=== PATIENT | female | born 1950 | race Caucasian/White ===

== ENCOUNTER → 2016-09-25 | Outpatient (CLI) | payer MEDICARE, OTHER ==
--- NOTE | 2016-10-06 18:37 | WOMENS IMAGING REPORT ---
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 LIMITATIONS: None. FINDINGS: Findings present which are benign by mammographic criteria. No suspicious masses, calcifi cations or architectural distortion. Pertinent benign findings: Right breast benign calcifications, left axillary surgical clips with left breast skin thickening from breast radiation therapy. Read with the assistance of CAD. .[facility] - R2 Cenova Version 1.3 .[facility] - R2 Cenova Version 1.3 .[facility] - R2 Cenova Version 2.4 .[facility] [place] R2 Cenova Version 2.4 .[facility] - R2 Marking Clerk Version 9.2 Benign mammographic findings may include one or more of the following: Smooth masses, popcorn/rim/co arse calcifications, asymmetries, post-procedure changes, and lesions with long-standing stability. IMPRESSION: BENIGN MAMMOGRAPHIC FINDINGS. BIRADS 2 BREAST DENSITY: b. There are scattered areas of fibroglandular density. BIRAD: 2 BENIGN FINDING(S) RECOMMENDATION: RECOMMENDATION: ROUTINE SCREENING COMMENT: The patient has been notified of the results by letter per SA requirements. Additional no tification policies are in place for contacting patient with suspicious or incomplete findings. Quality ID #[id number]: The [employer] recommends an annual screening mammogram for women aged 40 years or over. This facility utilizes a reminder system to ensure that all patients receive reminder letters, and/or direct phone calls for appointments. This includes reminders for routine scr eening mammograms, diagnostic mammograms, or other Breast Imaging Interventions when appropriate. Th is patient will be placed in the appropriate reminder system. The [employer] (ACR) has developed recommendations for screening MRI of the breast s in certain patient populations, to be used in conjunction with mammography. Breast MRI surveillanc e may be appropriate for women with more than 20% lifetime risk of developing breast cancer as deter mined by genetic testing, significant family history of the disease, or history of mantle radiation f or Hodgkins Disease. ACR Practice Guidelines 2008. DBT Technology DBT is a type of tomographic mammography. With conventional mammography, overlapping breast tissue ma y make lesions difficult to detect, even with good compression. DBT uses an x-ray tube that rotates a round the breast, taking images at different angles. These images are then combined to create thin sl ices of the breast that the radiologist can view as a 3D reconstruction. The [employer] unit can perform full-field digital mammograms (2D imaging); or DBT (3D imaging); or both, in a combination mode that quickly performs both the mammogram and the tomosynthesis scan while the breast is still compressed. PQRS 6045F: Fluoroscopic imaging is not utilized for breast tomosynthesis. TECHNICAL DOCUMENTATION: FINDING NUMBER: (1) ASSESSMENT: (1) JOB ID: [id number] [employer]- All Rights Reserved
== END ==
LOC: WI 09:14
PROVIDERS: ATTEND Internal Medicine
DX: C50.412 Malignant neoplasm of upper-outer quadrant of left female breast (principal)
CPT/HCPCS: G0279; G0204; 77062; 77066

== ENCOUNTER 2017-04-19 07:11 | Day surgery (SDC) | payer MEDICARE, OTHER ==
[~2017-04-19 07:11] MED LIST: KETOROLAC TROMETHAMINE 0.45% 4 DROP/0.4 ML DROPERETTE OS PRN
[2017-04-19] MEDS: TROPICAMIDE 1% OPH SOLN 3 ML OS PRN ×3 (07:32→08:12)
[2017-04-19] MEDS: CYCLOPENTOLATE 0.2%/PHENYLEPHRINE 1% OPH SOLN 2 ML OS PRN ×3 (07:32→08:12)
[2017-04-19] MEDS: BESIFLOXACIN HCL 0.6% OPH SUSP 5 ML BOTTLE OS PRN ×4 (07:33→08:57)
[2017-04-19] MEDS: TETRACAINE HCL 0.5% OPH SOLN 2 ML OS PRN ×4 (07:34→08:32)
[2017-04-19] MEDS ORDERED: MIDAZOLAM 2 MG/2 ML INJ ONE ×2 (08:04→08:23)
[2017-04-19] MEDS ORDERED: DEXTROSE 50%-WATER 25 GM/50 ML DISP.SYRIN IV ONE (08:24)
[2017-04-19] MEDS: EPINEPHRINE INJ/PF 1 MG/1 ML AMPULE ONE ×2 (08:44)
[2017-04-19] MEDS: CHONDR SU A NA/HYALUR INTRAOC KIT (SURGICARE) ONE ×2 (08:44)
[2017-04-19] MEDS: LIDOCAINE 1% INJ-PF (10 MG/ML) 30 ML SDV ONE ×2 (08:44)
--- NOTE | 2017-04-19 21:23 | [facility] DISCHARGE SUMMARY E ---
[facility] Discharge Summary NAME: CARMEN DC AGE: 66Y ADMITTED: 04/19/2017 DISCHARGED: 04/19/2017 HOSPITAL COURSE: This is a 66-year-old female who underwent cataract extraction of the left eye. DIAGNOSIS: CATARACT, LEFT EYE. The patient underwent surgery because she was having difficulty seeing road signs. DISCHARGE INSTRUCTIONS: She is to be on a regular diet. No bending at the waist, no heavy lifting. She should use Besivance, Ilevro, and Durezol at 3 p.m. and 8 p.m. and sleep with a rigid shield. I will see her for a 1 day postoperative tomorrow. DICTATING PHYSICIAN: FRANKY PEMBERTON M.D. [id number] PHY#: [id number] ID: [id number] JOB#: [id number] ACCT: [id number] cc:FRANKY PEMBERTON M.D. >
--- NOTE | 2017-04-19 21:33 | SURGICARE OPERATIVE REPORT E ---
[facility] Operative Report NAME: CARMEN DC AGE: 66Y DATE OF SURGERY: 04/19/2017 ROOM: PREOPERATIVE DIAGNOSIS: CATARACT, LEFT EYE. POSTOPERATIVE DIAGNOSIS: CATARACT, LEFT EYE. OPERATION: Cataract extraction with intraocular lens implant of the left eye. SURGEON: FRANKY PEMBERTON M.D. ANESTHESIA: Topical. PROCEDURE: After obtaining appropriate consent, the patient's left eye was prepped and draped in sterile fashion as well as the surgeon in a sterile manner and cataract surgery was started. First a paracentesis blade was used to make a small side-port incision. Viscoelastic was used to inflate the anterior chamber. Next a 2.4 mm incision was made with the paracentesis blade. A continuous capsulorrhexis incision was made using a cystotome and Utrata forceps. Following this hydrodissection was carried out to make the lens fully loose and mobile and it was rotated 90 degrees. Following this, a yhgqtg-vwi-rjksere technique was used to phacoemulsify the lens with a CDE of 10.65. The remaining cortex was removed with irrigation/aspiration. Provisc was instilled into the capsular bag to inflate the bag. A SN60WF, 14.0 diopter lens was placed. The remaining viscoelastic material was removed with irrigation/aspiration. Following this, a 10-0 nylon suture was used to close the incision and it was found to be watertight. Vigamox was instilled in the eye and a protective shield was placed over the eye. The patient returned to the postoperative recovery in stable condition. DICTATING PHYSICIAN: FRANKY PEMBERTON M.D. [id number] PHY#: [id number] ID: [id number] JOB#: [id number] ACCT: [id number] cc:FRANKY PEMBERTON M.D. >
== END 2017-04-19 09:50 | disposition home or self-care (01) ==
LOC: SC 07:11
PROVIDERS: ATTEND Internal Medicine
PROC: 08RK3JZ Replacement of Left Lens with Synthetic Substitute, Percutaneous Approach (ICD-10-PCS; principal; 2017-04-19 08:30)
DX: H25.12 Age-related nuclear cataract, left eye (principal); I10 Essential (primary) hypertension; K21.9 Gastro-esophageal reflux disease without esophagitis; E11.9 Type 2 diabetes mellitus without complications; Z79.84 Long term (current) use of oral hypoglycemic drugs; Z88.0 Allergy status to penicillin; Z79.82 Long term (current) use of aspirin; Z85.3 Personal history of malignant neoplasm of breast
CPT/HCPCS: 66984; 82962; V2632; J2250; J3490 ×3; A9270; J0171; 142

== ENCOUNTER 2017-05-17 06:51 | Day surgery (SDC) | payer MEDICARE, OTHER ==
[~2017-05-17 06:51] MED LIST changes: +BESIFLOXACIN HCL 0.6% OPH SUSP 5 ML BOTTLE OD PRN; +CYCLOPENTOLATE 0.2%/PHENYLEPHRINE 1% OPH SOLN 2 ML OD PRN; +KETOROLAC TROMETHAMINE 0.45% 4 DROP/0.4 ML DROPERETTE OD PRN; -KETOROLAC TROMETHAMINE 0.45% 4 DROP/0.4 ML DROPERETTE OS PRN; +TETRACAINE HCL 0.5% OPH SOLN 2 ML OD PRN; +TROPICAMIDE 1% OPH SOLN 3 ML OD PRN
[2017-05-17] MEDS ORDERED: EPINEPHRINE INJ/PF 1 MG/1 ML AMPULE ONE (07:11)
[2017-05-17] MEDS ORDERED: LIDOCAINE 1% INJ-PF (10 MG/ML) 30 ML SDV ONE (07:11)
[2017-05-17] MEDS ORDERED: CHONDR SU A NA/HYALUR INTRAOC KIT (SURGICARE) ONE (07:11)
[2017-05-17] MEDS: TETRACAINE HCL 0.5% OPH SOLN 2 ML OD PRN ×3 (07:15→07:55)
[2017-05-17] MEDS: TROPICAMIDE 1% OPH SOLN 3 ML OD PRN ×3 (07:16→07:40)
[2017-05-17] MEDS: CYCLOPENTOLATE 0.2%/PHENYLEPHRINE 1% OPH SOLN 2 ML OD PRN ×3 (07:16→07:40)
[2017-05-17] MEDS: BESIFLOXACIN HCL 0.6% OPH SUSP 5 ML BOTTLE OD PRN ×5 (07:16→08:15)
[2017-05-17] MEDS ORDERED: MIDAZOLAM 2 MG/2 ML INJ ONE (07:19)
--- NOTE | 2017-05-17 21:44 | SUR[facility]ARE DISCHARGE SUMMARY E ---
[facility] Discharge Summary NAME: CARMEN DC AGE: 66Y ADMITTED: 05/17/2017 DISCHARGED: 05/17/2017 HOSPITAL COURSE: This is a 66-year-old patient who underwent cataract extraction of the right eye. DIAGNOSIS: CATARACT, right EYE. She underwent surgery because she was having difficulty reading and watching TV. DISCHARGE INSTRUCTIONS: She should be on a regular diet. No bending at her waist, no heavy lifting. She should use Besivance, Ilevro, and Durezol at 3 p.m. and 8 p.m. and sleep with a rigid shield. I will see her for her 1 day postoperative tomorrow. DICTATING PHYSICIAN: FRANKY PEMBERTON M.D. [id number] PHY#: [id number] ID: [id number] JOB#: [id number] ACCT: [id number] cc:FRANKY PEMBERTON M.D. >
--- NOTE | 2017-05-17 21:44 | [facility]ARE OPERATIVE REPORT E ---
[facility] Operative Report NAME: CARMEN DC AGE: 66Y DATE OF SURGERY: 05/17/2017 ROOM: PREOPERATIVE DIAGNOSIS: CATARACT, RIGHT EYE. POSTOPERATIVE DIAGNOSIS: CATARACT, RIGHT EYE. OPERATION: Cataract extraction with intraocular lens implant of the right eye. SURGEON: FRANKY PEMBERTON M.D. ANESTHESIA: Topical. PROCEDURE: After obtaining appropriate consent, the patient's right eye was prepped and draped in sterile fashion as well as the surgeon in a sterile manner and cataract surgery was started. First a paracentesis blade was used to make a small side-port incision. Viscoelastic was used to inflate the anterior chamber. Next a 2.4 mm incision was made with the paracentesis blade. A continuous capsulorrhexis incision was made using a cystotome and Utrata forceps. Following this hydrodissection was carried out to make the lens fully loose and mobile and it was rotated 90 degrees. Following this, a eeifcz-nrr-eabkdgm technique was used to phacoemulsify the lens with a CDE of 5.52. The remaining cortex was removed with irrigation/aspiration. Provisc was instilled into the capsular bag to inflate the bag. A SN60WF, 12.5 diopter lens was placed. The remaining viscoelastic material was removed with irrigation/aspiration. Following this, a 10-0 nylon suture was used to close the incision and it was found to be watertight. Vigamox was instilled in the eye and a protective shield was placed over the eye. The patient returned to the postoperative recovery in stable condition. DICTATING PHYSICIAN: FRANKY PEMBERTON M.D. [id number] PHY#: [id number] ID: [id number] JOB#: [id number] ACCT: [id number] cc:FRANKY PEMBERTON M.D. >
== END 2017-05-17 08:57 | disposition home or self-care (01) ==
LOC: SC 06:51
PROVIDERS: ATTEND Internal Medicine
PROC: 08RJ3JZ Replacement of Right Lens with Synthetic Substitute, Percutaneous Approach (ICD-10-PCS; principal; 2017-05-17 08:00)
DX: H25.11 Age-related nuclear cataract, right eye (principal); Z96.1 Presence of intraocular lens; I10 Essential (primary) hypertension; K21.9 Gastro-esophageal reflux disease without esophagitis; E11.9 Type 2 diabetes mellitus without complications; Z79.899 Other long term (current) drug therapy; Z79.84 Long term (current) use of oral hypoglycemic drugs; Z79.82 Long term (current) use of aspirin; Z88.0 Allergy status to penicillin; Z85.3 Personal history of malignant neoplasm of breast
CPT/HCPCS: 66984; 82962; V2632; J2250; J3490 ×2; A9270; J0171; 142

== ENCOUNTER → 2017-08-07 | Outpatient (CLI) | payer MEDICARE, OTHER ==
--- NOTE | 2017-08-07 16:03 | WOMENS IMAGING REPORT ---
EXAM DESCRIPTION: 3D DX MAMMO BILAT; U/S BREAST UNILAT LIMITED COMPLETED DATE/TIME: 08/07/2017 10:38 am; 08/07/2017 1:03 pm REASON FOR STUDY: BREAST CA; C50.412; LEFT BREAST LUMP C50.412 C50.412 MALIG NEOPLASM OF UPPER-OUTE R QUADRANT OF LEFT FEMAL COMPARISON: Bilateral screening tomosynthesis 09/25/2016 TECHNIQUE: Standard craniocaudal and mediolateral oblique views of each breast recorded using digita l acquisition and breast tomosynthesis. Additional left breast compression cone views of the palpable nodule left breast periareolar 12 o'jhonny ck position. Additional left breast 90 mediolateral view Left breast ultrasound was also performed LIMITATIONS: None. FINDINGS: RIGHT BREAST MASSES: No worrisome masses CALCIFICATIONS: No new or suspicious calcifications. ARCHITECTURAL DISTORTION: None. DEVELOPING DENSITY: None. ASYMMETRY: None noted. OTHER: No other significant findings. LEFT BREAST MASSES: In the left breast periareolar region 12 o'clock position, an oil cyst is present just deep t o the skin measuring about 11 mm in size. Immediately adjacent, another oil cyst is present measurin g about 14 mm in size CALCIFICATIONS: No new or suspicious calcifications. ARCHITECTURAL DISTORTION: None. DEVELOPING DENSITY: None. ASYMMETRY: None noted. OTHER: There is diffuse left breast skin thickening from prior radiation therapy. Read with the assistance of CAD: .[facility] - R2 Cenova Version 1.3 .[facility] Imaging - R2 Cenova Version 1.3 .[facility] - R2 Cenova Version 2.4 .[facility] [place] - R2 Cenova Version 2.4 .[facility] - R2 Tube Splicer Version 9.2 Left breast ultrasound: Left breast ultrasound was performed along the 12 o'clock periareolar region. There are 2 1 oil cyst adjacent to each other, 11 mm and 14 mm in size. This correlates with the tomosynthesis images and is in the area of palpable abnormality indicated by the patient. IMPRESSION: No mammographic/tomosynthesis evidence for malignancy right breast No mammographic/ tomosynthesis or ultrasound evidence for malignancy left breast. Left periareolar p alpable nodules correlate with fat necrosis BREAST DENSITY: c. The breasts are heterogeneously dense, which may obscure small masses. BIRAD: 2 Benign findings. RECOMMENDATION: RECOMMENDED FOLLOW UP: Please continue yearly bilateral screening mammography/ tomos ynthesis in July 2018 SPECIFIC INTERVENTION/IMAGING/CONSULTATION RECOMMENDED:No additional intervention/ imaging/consultati on needed at this time. COMMUNICATION:Patient notified by letter COMMENT: The patient has been notified of the results by letter per SA requirements. Additional no tification policies are in place for contacting patient with suspicious or incomplete findings. Quality ID #225: The [employer] recommends an annual screening mammogram for women aged 40 years or over. This facility utilizes a reminder system to ensure that all patients receive reminder letters, and/or direct phone calls for appointments. This includes reminders for routine scr eening mammograms, diagnostic mammograms, or other Breast Imaging Interventions when appropriate. Th is patient will be placed in the appropriate reminder system. The [employer] (ACR) has developed recommendations for screening MRI of the breast s in certain patient populations, to be used in conjunction with mammography. Breast MRI surveillanc e may be appropriate for women with more than 20% lifetime risk of developing breast cancer as deter mined by genetic testing, significant family history of the disease, or history of mantle radiation f or Hodgkins Disease. ACR Practice Guidelines 2008. DBT Technology DBT is a type of tomographic mammography. With conventional mammography, overlapping breast tissue ma y make lesions difficult to detect, even with good compression. DBT uses an x-ray tube that rotates a round the breast, taking images at different angles. These images are then combined to create thin sl ices of the breast that the radiologist can view as a 3D reconstruction. The [employer] unit can perform full-field digital mammograms (2D imaging); or DBT (3D imaging); or both, in a combination mode that quickly performs both the mammogram and the tomosynthesis scan while the breast is still compressed. PQRS 6045F: Fluoroscopic imaging is not utilized for breast tomosynthesis. TECHNICAL DOCUMENTATION: FINDING NUMBER: (1) ASSESSMENT: (1) JOB ID: [id number] [employer]- All Rights Reserved Reading location - IP/workstation name: [facility]
--- NOTE | 2017-08-07 16:03 | WOMENS IMAGING REPORT ---
EXAM DESCRIPTION: 3D DX MAMMO BILAT; U/S BREAST UNILAT LIMITED COMPLETED DATE/TIME: 08/07/2017 10:38 am; 08/07/2017 1:03 pm REASON FOR STUDY: BREAST CA; C50.412; LEFT BREAST LUMP C50.412 C50.412 MALIG NEOPLASM OF UPPER-OUTE R QUADRANT OF LEFT FEMAL COMPARISON: Bilateral screening tomosynthesis 09/25/2016 TECHNIQUE: Standard craniocaudal and mediolateral oblique views of each breast recorded using digita l acquisition and breast tomosynthesis. Additional left breast compression cone views of the palpable nodule left breast periareolar 12 o'jhonny ck position. Additional left breast 90 mediolateral view Left breast ultrasound was also performed LIMITATIONS: None. FINDINGS: RIGHT BREAST MASSES: No worrisome masses CALCIFICATIONS: No new or suspicious calcifications. ARCHITECTURAL DISTORTION: None. DEVELOPING DENSITY: None. ASYMMETRY: None noted. OTHER: No other significant findings. LEFT BREAST MASSES: In the left breast periareolar region 12 o'clock position, an oil cyst is present just deep t o the skin measuring about 11 mm in size. Immediately adjacent, another oil cyst is present measurin g about 14 mm in size CALCIFICATIONS: No new or suspicious calcifications. ARCHITECTURAL DISTORTION: None. DEVELOPING DENSITY: None. ASYMMETRY: None noted. OTHER: There is diffuse left breast skin thickening from prior radiation therapy. Read with the assistance of CAD: .[facility] - R2 Cenova Version 1.3 .[facility] Imaging - R2 Cenova Version 1.3 .[facility] - R2 Cenova Version 2.4 .[facility] [place] - R2 Cenova Version 2.4 .[facility] - R2 All Around Patternmaker Version 9.2 Left breast ultrasound: Left breast ultrasound was performed along the 12 o'clock periareolar region. There are 2 1 oil cyst adjacent to each other, 11 mm and 14 mm in size. This correlates with the tomosynthesis images and is in the area of palpable abnormality indicated by the patient. IMPRESSION: No mammographic/tomosynthesis evidence for malignancy right breast No mammographic/ tomosynthesis or ultrasound evidence for malignancy left breast. Left periareolar p alpable nodules correlate with fat necrosis BREAST DENSITY: c. The breasts are heterogeneously dense, which may obscure small masses. BIRAD: 2 Benign findings. RECOMMENDATION: RECOMMENDED FOLLOW UP: Please continue yearly bilateral screening mammography/ tomos ynthesis in July 2018 SPECIFIC INTERVENTION/IMAGING/CONSULTATION RECOMMENDED:No additional intervention/ imaging/consultati on needed at this time. COMMUNICATION:Patient notified by letter COMMENT: The patient has been notified of the results by letter per SA requirements. Additional no tification policies are in place for contacting patient with suspicious or incomplete findings. Quality ID #[id number]: The [employer] recommends an annual screening mammogram for women aged 40 years or over. This facility utilizes a reminder system to ensure that all patients receive reminder letters, and/or direct phone calls for appointments. This includes reminders for routine scr eening mammograms, diagnostic mammograms, or other Breast Imaging Interventions when appropriate. Th is patient will be placed in the appropriate reminder system. The [employer] (ACR) has developed recommendations for screening MRI of the breast s in certain patient populations, to be used in conjunction with mammography. Breast MRI surveillanc e may be appropriate for women with more than 20% lifetime risk of developing breast cancer as deter mined by genetic testing, significant family history of the disease, or history of mantle radiation f or Hodgkins Disease. ACR Practice Guidelines 2008. DBT Technology DBT is a type of tomographic mammography. With conventional mammography, overlapping breast tissue ma y make lesions difficult to detect, even with good compression. DBT uses an x-ray tube that rotates a round the breast, taking images at different angles. These images are then combined to create thin sl ices of the breast that the radiologist can view as a 3D reconstruction. The [employer] unit can perform full-field digital mammograms (2D imaging); or DBT (3D imaging); or both, in a combination mode that quickly performs both the mammogram and the tomosynthesis scan while the breast is still compressed. PQRS 6045F: Fluoroscopic imaging is not utilized for breast tomosynthesis. TECHNICAL DOCUMENTATION: FINDING NUMBER: (1) ASSESSMENT: (1) JOB ID: [id number] [employer]- All Rights Reserved Reading location - IP/workstation name: [facility]-RR
== END ==
LOC: WI 10:10
PROVIDERS: ATTEND Physician Assistant Medical
DX: C50.412 Malignant neoplasm of upper-outer quadrant of left female breast (principal); N60.02 Solitary cyst of left breast
CPT/HCPCS: 76642; 77066; G0279; 77062

== ENCOUNTER → 2018-08-13 | Outpatient (CLI) | payer MEDICARE, OTHER ==
--- NOTE | 2018-08-13 10:15 | WOMENS IMAGING REPORT ---
EXAM DESCRIPTION: 3D DX MAMMO BILAT COMPLETED DATE/TIME: 08/13/2018 9:28 am REASON FOR STUDY: C50.412 MALIGNANT NEOPLASM OF UPPER-OUTER QUADRANT OF LEFT FEMALE BREAST C50.412 MALIG NEOPLASM OF UPPER-OUTER QUADRANT OF LEFT FEMAL COMPARISON: 08/07/2017 and 09/25/2016. TECHNIQUE: Standard craniocaudal and mediolateral oblique views of each breast recorded using digita l acquisition and breast tomosynthesis. Additional true lateral images of the left breast acquired with tomosynthesis. LIMITATIONS: None. FINDINGS: RIGHT BREAST MASSES: No suspicious masses. CALCIFICATIONS: Stable calcifications. No new or suspicious calcifications. ARCHITECTURAL DISTORTION: None. DEVELOPING DENSITY: None. ASYMMETRY: None noted. OTHER: No other significant findings. LEFT BREAST MASSES: No suspicious masses. CALCIFICATIONS: Postsurgical dystrophic calcifications. ARCHITECTURAL DISTORTION: Stable surgical changes. DEVELOPING DENSITY: None. ASYMMETRY: None noted. OTHER: No other significant finding. Read with the assistance of CAD: .[facility] - R2 Cenova Version 1.3 .[facility] Imaging - R2 Cenova Version 2.1 .[facility] - R2 Cenova Version 2.4 .[facility] - R2 Cenova Version 2.4 .[facility] - R2 Rn Labor Delivery Version 9.2 IMPRESSION: Stable mammographic appearance of both breasts. Stable surgical changes in left breast. No worrisome findings. BREAST DENSITY: c. The breasts are heterogeneously dense, which may obscure small masses. BIRAD: 2 Benign findings. RECOMMENDATION: RECOMMENDED FOLLOW UP: Birads 1 or 2: Annual mammography. SPECIFIC INTERVENTION/IMAGING/CONSULTATION RECOMMENDED:No additional intervention/ imaging/consultati on needed at this time. COMMUNICATION:The imaging findings were not discussed with the patient. Her referring provider has be en notified of the findings. COMMENT: The patient has been notified of the results by letter per SA requirements. Additional no tification policies are in place for contacting patient with suspicious or incomplete findings. Quality ID #225: The [employer] recommends an annual screening mammogram for women aged 40 years or over. This facility utilizes a reminder system to ensure that all patients receive reminder letters, and/or direct phone calls for appointments. This includes reminders for routine scr eening mammograms, diagnostic mammograms, or other Breast Imaging Interventions when appropriate. Th is patient will be placed in the appropriate reminder system. The [employer] (ACR) has developed recommendations for screening MRI of the breast s in certain patient populations, to be used in conjunction with mammography. Breast MRI surveillanc e may be appropriate for women with more than 20% lifetime risk of developing breast cancer as deter mined by genetic testing, significant family history of the disease, or history of mantle radiation f or Hodgkins Disease. ACR Practice Guidelines 2008. DBT Technology DBT is a type of tomographic mammography. With conventional mammography, overlapping breast tissue ma y make lesions difficult to detect, even with good compression. DBT uses an x-ray tube that rotates a round the breast, taking images at different angles. These images are then combined to create thin sl ices of the breast that the radiologist can view as a 3D reconstruction. The [employer] unit can perform full-field digital mammograms (2D imaging); or DBT (3D imaging); or both, in a combination mode that quickly performs both the mammogram and the tomosynthesis scan while the breast is still compressed. PQRS 6045F: Fluoroscopic imaging is not utilized for breast tomosynthesis. TECHNICAL DOCUMENTATION: FINDING NUMBER: (1) ASSESSMENT: (1) JOB ID: [id number] [employer]- All Rights Reserved Reading location - IP/workstation name: [email or web address]
== END ==
LOC: WI 08:41
PROVIDERS: ATTEND Internal Medicine
DX: C50.412 Malignant neoplasm of upper-outer quadrant of left female breast (principal)
CPT/HCPCS: 77066; G0279; 77062

== ENCOUNTER → 2019-01-14 | Outpatient (CLI) | payer MEDICARE, OTHER ==
--- NOTE | 2019-01-14 15:46 | WOMENS IMAGING REPORT ---
EXAM DESCRIPTION: LEFT DIAGNOSTIC MAMMO W/CAD; U/S BREAST UNILAT LIMITED COMPLETED DATE/TIME: 01/14/2019 1:18 pm; 01/14/2019 1:47 pm REASON FOR STUDY: N63.21 UNSPECIFIED LUMP; LEFT BREAST LUMPS N63.21 UNSPECIFIED LUMP IN THE LEFT BR EAST, UPPER OUTER QUAD COMPARISON: Multiple since 2017 EXAM PARAMETERS: Standard craniocaudal, 90 mediolateral and mediolateral oblique images of the ragini st recorded with digital acquisition. Left breast ultrasound was also performed Read with the assistance of CAD. .[facility] - R2 Senior [employer] Developer Version 9.2 LIMITATIONS: None. FINDINGS: BREAST LATERALITY: Left MASSES: In the left breast 12 o'clock periareolar position, patient indicates a palpable mass. Deep to the palpable marker, peripherally calcified oil cysts are present mammographically. CALCIFICATIONS: No new or suspicious calcifications. ARCHITECTURAL DISTORTION: None. DEVELOPING DENSITY: None. ASYMMETRY: None noted. OTHER: The diffuse left breast skin thickening post radiation Left breast ultrasound: Ultrasound was performed in the area of palpable abnormality 12 o'clock position periareolar. Benign -appearing peripherally calcified oil cysts are present, 12 x 7 mm in size, 10 x 6 mm in size. There is diffuse skin thickening, 6 to 7 mm in thickness in the area of oil cysts. This likely represents post radiation change. IMPRESSION: No mammographic or sonographic evidence for malignancy left breast. Palpable abnormalit y correlates with peripherally calcifying oil cysts in the periareolar region. Patient is due for right breast screening mammograms in July 2019 BREAST DENSITY: b. There are scattered areas of fibroglandular density. BIRAD: ASSESSMENT: 2 Benign findings. RECOMMENDATION: RECOMMENDED FOLLOW UP: Please continue yearly bilateral mammograms/tomosynthesis in July 2019. SPECIFIC INTERVENTION/IMAGING/CONSULTATION RECOMMENDED:No additional intervention/ imaging/consultati on needed at this time. COMMUNICATION:Patient notified by letter COMMENT: The patient has been notified of the results by letter per MQSA requirements. Additional no tification policies are in place for contacting patient with suspicious or incomplete findings. Quality ID #225: The [employer] recommends an annual screening mammogram for women aged 40 years or over. This facility utilizes a reminder system to ensure that all patients receive reminder letters, and/or direct phone calls for appointments. This includes reminders for routine scr eening mammograms, diagnostic mammograms, or other Breast Imaging Interventions when appropriate. Th is patient will be placed in the appropriate reminder system. TECHNICAL DOCUMENTATION: FINDING NUMBER: (1) ASSESSMENT: (1) JOB ID: [id number] [employer]- All Rights Reserved Reading location - IP/workstation name: [email or web address]
--- NOTE | 2019-01-14 15:46 | WOMENS IMAGING REPORT ---
EXAM DESCRIPTION: LEFT DIAGNOSTIC MAMMO W/CAD; U/S BREAST UNILAT LIMITED COMPLETED DATE/TIME: 01/14/2019 1:18 pm; 01/14/2019 1:47 pm REASON FOR STUDY: N63.21 UNSPECIFIED LUMP; LEFT BREAST LUMPS N63.21 UNSPECIFIED LUMP IN THE LEFT BR EAST, UPPER OUTER QUAD COMPARISON: Multiple since 2017 EXAM PARAMETERS: Standard craniocaudal, 90 mediolateral and mediolateral oblique images of the ragini st recorded with digital acquisition. Left breast ultrasound was also performed Read with the assistance of CAD. .[facility] - R2 Clamshell Engineer Version 9.2 LIMITATIONS: None. FINDINGS: BREAST LATERALITY: Left MASSES: In the left breast 12 o'clock periareolar position, patient indicates a palpable mass. Deep to the palpable marker, peripherally calcified oil cysts are present mammographically. CALCIFICATIONS: No new or suspicious calcifications. ARCHITECTURAL DISTORTION: None. DEVELOPING DENSITY: None. ASYMMETRY: None noted. OTHER: The diffuse left breast skin thickening post radiation Left breast ultrasound: Ultrasound was performed in the area of palpable abnormality 12 o'clock position periareolar. Benign -appearing peripherally calcified oil cysts are present, 12 x 7 mm in size, 10 x 6 mm in size. There is diffuse skin thickening, 6 to 7 mm in thickness in the area of oil cysts. This likely represents post radiation change. IMPRESSION: No mammographic or sonographic evidence for malignancy left breast. Palpable abnormalit y correlates with peripherally calcifying oil cysts in the periareolar region. Patient is due for right breast screening mammograms in July 2019 BREAST DENSITY: b. There are scattered areas of fibroglandular density. BIRAD: ASSESSMENT: 2 Benign findings. RECOMMENDATION: RECOMMENDED FOLLOW UP: Please continue yearly bilateral mammograms/tomosynthesis in July 2019. SPECIFIC INTERVENTION/IMAGING/CONSULTATION RECOMMENDED:No additional intervention/ imaging/consultati on needed at this time. COMMUNICATION:Patient notified by letter COMMENT: The patient has been notified of the results by letter per MQSA requirements. Additional no tification policies are in place for contacting patient with suspicious or incomplete findings. Quality ID #225: The [employer] recommends an annual screening mammogram for women aged 40 years or over. This facility utilizes a reminder system to ensure that all patients receive reminder letters, and/or direct phone calls for appointments. This includes reminders for routine scr eening mammograms, diagnostic mammograms, or other Breast Imaging Interventions when appropriate. Th is patient will be placed in the appropriate reminder system. TECHNICAL DOCUMENTATION: FINDING NUMBER: (1) ASSESSMENT: (1) JOB ID: [id number] [employer]- All Rights Reserved Reading location - IP/workstation name: [email or web address]
== END ==
LOC: WI 12:55
PROVIDERS: ATTEND Internal Medicine Medical Oncology
DX: N63.21 Unspecified lump in the left breast, upper outer quadrant (principal)
CPT/HCPCS: 76642

== ENCOUNTER → 2019-05-23 | Outpatient (CLI) | payer MEDICARE, OTHER | LOC: WI 13:19 | PROVIDERS: ATTEND Physician Assistant | DX: Z78.0 Asymptomatic menopausal state (principal); Z53.8 Procedure and treatment not carried out for other reasons ==

== ENCOUNTER → 2019-06-18 | Outpatient (CLI) | payer MEDICARE, OTHER ==
--- NOTE | 2019-06-18 12:15 | WOMENS IMAGING REPORT ---
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 EXAM PARAMETERS: Standard craniocaudal and mediolateral oblique views of each breast recorded using digital acquisition and breast tomosynthesis. Additional true lateral images of both breasts acquired with tomosynthesis. Read with the assistance of CAD: .[employer] Truck Driver Flatbed Version 9.2 LIMITATIONS: None. FINDINGS: RIGHT BREAST MASSES: No suspicious masses. CALCIFICATIONS: No new or suspicious calcifications. ARCHITECTURAL DISTORTION: None. ASYMMETRY: None noted. OTHER: No other significant findings. LEFT BREAST MASSES: Stable circumscribed oil cysts in the superior breast. CALCIFICATIONS: No new or suspicious calcifications. ARCHITECTURAL DISTORTION: Stable surgical changes. ASYMMETRY: None noted. OTHER: Stable posttreatment skin thickening. BREAST ULTRASOUND: TECHNIQUE: Static and dynamic grayscale images acquired of the right and left breast in the specific areas of clinical/mammographic concern. Periareolar right and left breasts. Selected color Doppler i mages recorded. ELASTOGRAPHY PERFORMED: No. LIMITATIONS: None. FINDINGS: MASS: No abnormal sonographic findings in the right breast. Stable calcified oil cysts in the subcut aneous left breast along with skin thickening post radiation. No suspicious mass identified. Normal glandular tissue. ELASTOGRAPHY CHARACTERISTICS: Not applicable. OTHER: No other significant finding. IMPRESSION: Stable mammographic appearance of both breasts. No worrisome mammographic or sonographi c finding in either breast. BREAST DENSITY: c. The breasts are heterogeneously dense, which may obscure small masses. BIRAD: ASSESSMENT: 2 Benign findings. RECOMMENDATION: RECOMMENDED FOLLOW UP: Birads 1 or 2: The patient should resume routine screening . SPECIFIC INTERVENTION/IMAGING/CONSULTATION RECOMMENDED:No additional intervention/ imaging/consultati on needed at this time. COMMUNICATION:The imaging findings were not discussed with the patient. Her referring provider has be en notified of the findings. COMMENT: The patient has been notified of the results by letter per SA requirements. Additional no tification policies are in place for contacting patient with suspicious or incomplete findings. Quality ID #225: The [employer] recommends an annual screening mammogram for women aged 40 years or over. This facility utilizes a reminder system to ensure that all patients receive reminder letters, and/or direct phone calls for appointments. This includes reminders for routine scr eening mammograms, diagnostic mammograms, or other Breast Imaging Interventions when appropriate. Th is patient will be placed in the appropriate reminder system. TECHNICAL DOCUMENTATION: FINDING NUMBER: (1) ASSESSMENT: (1) JOB ID: [id number] 2010 [employer]- All Rights Reserved Reading location - IP/workstation name: [email or web address]
--- NOTE | 2019-06-18 12:15 | WOMENS IMAGING REPORT ---
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 EXAM PARAMETERS: Standard craniocaudal and mediolateral oblique views of each breast recorded using digital acquisition and breast tomosynthesis. Additional true lateral images of both breasts acquired with tomosynthesis. Read with the assistance of CAD: .[employer] [facility] Massage Therapist Version 9.2 LIMITATIONS: None. FINDINGS: RIGHT BREAST MASSES: No suspicious masses. CALCIFICATIONS: No new or suspicious calcifications. ARCHITECTURAL DISTORTION: None. ASYMMETRY: None noted. OTHER: No other significant findings. LEFT BREAST MASSES: Stable circumscribed oil cysts in the superior breast. CALCIFICATIONS: No new or suspicious calcifications. ARCHITECTURAL DISTORTION: Stable surgical changes. ASYMMETRY: None noted. OTHER: Stable posttreatment skin thickening. BREAST ULTRASOUND: TECHNIQUE: Static and dynamic grayscale images acquired of the right and left breast in the specific areas of clinical/mammographic concern. Periareolar right and left breasts. Selected color Doppler i mages recorded. ELASTOGRAPHY PERFORMED: No. LIMITATIONS: None. FINDINGS: MASS: No abnormal sonographic findings in the right breast. Stable calcified oil cysts in the subcut aneous left breast along with skin thickening post radiation. No suspicious mass identified. Normal glandular tissue. ELASTOGRAPHY CHARACTERISTICS: Not applicable. OTHER: No other significant finding. IMPRESSION: Stable mammographic appearance of both breasts. No worrisome mammographic or sonographi c finding in either breast. BREAST DENSITY: c. The breasts are heterogeneously dense, which may obscure small masses. BIRAD: ASSESSMENT: 2 Benign findings. RECOMMENDATION: RECOMMENDED FOLLOW UP: Birads 1 or 2: The patient should resume routine screening . SPECIFIC INTERVENTION/IMAGING/CONSULTATION RECOMMENDED:No additional intervention/ imaging/consultati on needed at this time. COMMUNICATION:The imaging findings were not discussed with the patient. Her referring provider has be en notified of the findings. COMMENT: The patient has been notified of the results by letter per SA requirements. Additional no tification policies are in place for contacting patient with suspicious or incomplete findings. Quality ID #225: The [employer] recommends an annual screening mammogram for women aged 40 years or over. This facility utilizes a reminder system to ensure that all patients receive reminder letters, and/or direct phone calls for appointments. This includes reminders for routine scr eening mammograms, diagnostic mammograms, or other Breast Imaging Interventions when appropriate. Th is patient will be placed in the appropriate reminder system. TECHNICAL DOCUMENTATION: FINDING NUMBER: (1) ASSESSMENT: (1) JOB ID: [id number] 2010 [employer]- All Rights Reserved Reading location - IP/workstation name: [email or web address]
== END ==
LOC: WI 11:01
DX: N60.02 Solitary cyst of left breast (principal); D48.61 Neoplasm of uncertain behavior of right breast
CPT/HCPCS: 76641; 77066; G0279; 77062